=== PATIENT | female | born 1975 | race Caucasian/White ===

== ENCOUNTER 2017-07-01 21:12 | Emergency (ER) | payer SELFPAY ==
[2017-07-01 21:41] VITALS: BP 108/57; PULSE 73; TEMP 98.1; BMI 33.3
--- NOTE | 2017-07-01 22:49 | PDOC ---
History of Present Illness - General Chief Complaint: Sore Throat Stated Complaint: PAIN, ACUTE Time Seen by Provider: 07/01/17 22:37 History Source: Patient Exam Limitations: No Limitations - History of Present Illness Initial Comments: 07/01/17 22:45 CC sore throat with nasal congestion and x 3 days Past History - Past Medical History Allergies/Adverse Reactions: Allergies Allergy/AdvReac Type Severity Reaction Status Date / Time MORPHINE Allergy Uncoded 07/01/17 21:31 Home Medications: Ambulatory Orders Diphenhydramine HCl [Benadryl -] 25 mg PO Q6H 07/01/17 - Psycho/Social/Smoking Cessation Hx Smoking History: Never smoked Hx Alcohol Use: No Drug/Substance Use Hx: No Review of Systems - Review of Systems Constitutional: No: Chills, Fever, Malaise HEENTM: Yes: Nose Pain, Nose Congestion, Throat Pain. No: Nose Bleeding, Throat Swelling, Difficulty Swallowing Respiratory: Yes: Cough Cardiac (ROS): No: Symptoms Reported ABD/GI: No: Symptoms Reported, Diarrhea, Nausea, Vomiting *Physical Exam - Vital Signs Last Vital Signs Temp Pulse Resp BP Pulse Ox 98.1 F 73 16 108/57 99 07/01/17 21:32 07/01/17 21:32 07/01/17 21:32 07/01/17 21:32 07/01/17 21:32 - Physical Exam General Appearance: Yes: Appropriately Dressed. No: Apparent Distress HEENT: positive: TMs Normal, Nasal Congestion, Rhinorrhea. negative: Normal Voice, Pharyngeal Erythema, Tonsillar Exudate Neck: positive: Supple. negative: Tender, Rigid, Lymphadenopathy (R), Lymphadenopathy (L) Respiratory/Chest: negative: Lungs Clear, Normal Breath Sounds, Wheezing Medical Decision Making - Medical Decision Making 07/01/17 22:47 will treat for allergies and throat pain *DC/Admit/Observation/Transfer Diagnosis at time of Disposition: Viral pharyngitis - Discharge Dispostion Disposition: HOME Condition at time of disposition: Stable Admit: No - Patient Instructions Additional Instructions: gargle; advil for fever; throat lozenges
== END 2017-07-01 22:55 | disposition home or self-care (01) ==
LOC: JERFT 21:12 → JER 21:12 → JERFT 22:55
DX: J02.8 Acute pharyngitis due to other specified organisms (principal); B97.89 Other viral agents as the cause of diseases classified elsewhere
CPT/HCPCS: 99281-25

== ENCOUNTER 2017-10-03 16:31 | Emergency (ER) | payer OTHER ==
[2017-10-03 16:47] VITALS: BP 107/66; PULSE 90; TEMP 98; BMI 32.0
--- NOTE | 2017-10-03 16:47 | PDOC ---
Rapid Medical Evaluation Time Seen by Provider: 10/03/17 16:44 Medical Evaluation: Allergies Allergy/AdvReac Type Severity Reaction Status Date / Time MORPHINE Allergy Uncoded 07/01/17 21:31 10/03/17 16:44 I have performed a brief in person evaluation of this patient. The patient presents with chief complaint of : sore throat for one week with cough , history of asthma . Pertinent PE findings: coughing hoarse voice , lungs CTA no wheezing I have ordered the following: rapid strep The patient will proceed to the ER for further evaluation.
[2017-10-03] MEDS ORDERED: ALBUTEROL SO4 2.5/IPRATROPIUM 0.5 INH SOL 3 ML VIAL.NEB. NEB ONE (17:45)
[2017-10-03] MEDS ORDERED: predniSONE 20 MG TABLET (UD) PO ONE (17:45)
--- NOTE | 2017-10-03 17:45 | PDOC ---
History of Present Illness - General Chief Complaint: Sore Throat Stated Complaint: COUGHING Time Seen by Provider: 10/03/17 16:44 History Source: Patient Exam Limitations: No Limitations - History of Present Illness Initial Comments: 10/03/17 17:46 Patient is here with complaints of one week of moist productive cough of thick yellow phlegm. States has asthma and has been using her albuterol inhaler but has minimal resolved and in fact getting worse past couple days. 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 Has used [id number] medications with some resolve Timing/Duration: reports: getting worse Severity: reports: mild, moderate Associated Symptoms: reports: cough, fever/chills, nasal congestion, nasal drainage, shortness of breath Past History - Travel Traveled outside of the country in the last 30 days: No Close contact w/someone who was outside of country & ill: No - Past Medical History Allergies/Adverse Reactions: Allergies Allergy/AdvReac Type Severity Reaction Status Date / Time morphine Allergy Verified 10/03/17 17:47 MORPHINE Allergy Uncoded 10/03/17 16:48 Home Medications: Ambulatory Orders Albuterol 0.083% Nebulizer Micaela [Ventolin 0.083% Nebulizer Soln -] 1 neb NEB Q4H PRN #30 vial 10/03/17 Prednisone [Deltasone -] 20 mg PO BID #8 tablet 10/03/17 COPD: No Other medical history: SLEEP APNEA, VARICOSE VEINS - Suicide/Smoking/Psychosocial Hx Smoking History: Never smoked Hx Alcohol Use: No Drug/Substance Use Hx: No Review of Systems - Review of Systems Able to Perform ROS?: Yes Is the patient limited [place]an proficient: Yes Constitutional: Yes: Symptoms Reported, See HPI, Fever, Loss of Appetite, Malaise HEENTM: Yes: Symptoms Reported, See HPI, Nose Congestion, Throat Swelling, Mouth Pain, Difficulty Swallowing Respiratory: Yes: Symptoms reported, See HPI, Cough Musculoskeletal: Yes: See HPI. No: Symptoms Reported Integumentary: Yes: Symptoms Reported All Other Systems: Reviewed and Negative *Physical Exam - Vital Signs Last Vital Signs Temp Pulse Resp BP Pulse Ox 98.0 F 90 20 107/66 100 10/03/17 16:43 10/03/17 16:43 10/03/17 16:43 10/03/17 16:43 10/03/17 16:43 - Physical Exam General Appearance: Yes: Nourished, Appropriately Dressed HEENT: positive: TMs Normal, Pharynx Normal (with thick white posterior sinus drainage noted in posterior pharynx) Neck: positive: Supple, Lymphadenopathy (R), Lymphadenopathy (L) Respiratory/Chest: positive: Chest Tender, Wheezing (tight inspiratory and expiratory breath sounds bilaterally). negative: Lungs Clear, Normal Breath Sounds Cardiovascular: positive: Regular Rhythm Gastrointestinal/Abdominal: positive: Soft. negative: Tender Musculoskeletal: positive: Normal Inspection Extremity: positive: Normal Capillary Refill, Normal Inspection. 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 Patient states feels much better and able to clear secretions with good inspiratory effort. *DC/Admit/Observation/Transfer Diagnosis at time of Disposition: Upper respiratory infection, viral - Discharge Dispostion Disposition: HOME Condition at time of disposition: Stable Admit: No - Referrals - Patient Instructions Printed Discharge Instructions: DI for Viral Upper Respiratory Infection -- Adult Additional Instructions: Rest, drink lots of fluids: Teas, water, soups, Pedialyte Saltwater gargles Steamy showers/seem to face break up mucus Avoid contact with others until fevers and cough resolved Lots of handwashing and good hygiene Continue [id number] medications for symptomatic relief Tylenol or Motrin for fever and pain Continue albuterol nebulizers every 4-6 hours for the next 2 days then as needed for continued cough Prednisone as directed until completed Followup with private physician in one to 2 days Return to emergency department / pediatric hospital for worsened symptoms, fevers, dehydration - Post Discharge Activity Forms/Work/School Notes: Back to Work
== END 2017-10-03 19:16 | disposition home or self-care (01) ==
LOC: JERFT 16:31
PROC: 3E0F7GC Introduction of Other Therapeutic Substance into Respiratory Tract, Via Natural or Artificial Opening (ICD-10-PCS; principal; 2017-10-03)
DX: J06.9 Acute upper respiratory infection, unspecified (principal); J45.909 Unspecified asthma, uncomplicated
CPT/HCPCS: 87070; 87430; 99281-25

== ENCOUNTER 2017-11-17 20:06 | Emergency (ER) | payer OTHER ==
[2017-11-17 20:21] VITALS: BP 106/67; PULSE 70; TEMP 97.7; BMI 33.0
--- NOTE | 2017-11-17 21:07 | PDOC ---
History of Present Illness - General Chief Complaint: Cold Symptoms Stated Complaint: COUGH, DIFFICULTY BREATHING Time Seen by Provider: 11/17/17 20:39 - History of Present Illness Initial Comments: 11/17/17 21:02 CHIEF COMPLAINT: HISTORY OF PRESENT ILLNESS: 42 yo F with hx of asthma presents to [facility] with cough x 2 weeks, body aches, and fever that has now resolved. No recent travel or sick contacts. PAST MEDICAL HISTORY: Denies past medical history FAMILY HISTORY: Denies SOCIAL HISTORY:Denies tobacco, alcohol, illicit drug use. SURGICAL HISTORY: Denies ALLERGIES: morphine REVIEW OF SYSTEMS General/Constitutional: Denies fever or chills. Denies weakness, weight change. HEENT: Denies change in vision. Denies ear pain or discharge. Denies sore throat. Cardiovascular: Denies chest pain or shortness of breath. Respiratory: Cough x 2 weeks. Denies wheezing, or hemoptysis. Gastrointestinal: Denies nausea, vomiting, diarrhea or constipation. Denies rectal bleeding. Genitourinary: Denies dysuria, frequency, or change in urination. Musculoskeletal: Denies joint or muscle swelling or pain. Denies neck or back pain. Skin and breasts: Denies rash or easy bruising. Neurologic: Denies headache, vertigo, loss of consciousness, or loss of sensation. PHYSICAL EXAM General Appearance: Well-appearing, appropriately dressed. No apparent distress , no intoxication. HEENT: EOMI, PERRLA, normal ENT inspection, normal voice, TMs normal, pharynx normal. No conjunctival pallor. No photophobia, scleral icterus. Neck: Supple. Trachea midline. No tenderness, rigidity, carotid bruit, stridor , lymphadenopathy, or thyromegaly. Respiratory/Chest: Lungs CTAB. No shortness of breath, chest tenderness, respiratory distress, accessory muscle use. No crackles, rales, rhonchi, stridor , wheezing, dullness Cardiovascular: RRR. S1, S2. No JVD, murmur, bradycardia, tachycardia. Vascular Pulses: Dorsalis-Pedis (R): 2+, Dorsalis-Pedis (L): 2+ Gastrointestinal/Abdominal: Normal bowel sounds. Abdomen soft, non-distended. No tenderness or rebound tenderness. No organomegaly, pulsatile mass, guarding , hernia, hepatomegaly, splenomegaly. Lymphatic: No adenopathy, tenderness. Musculoskeletal/Extremities: Normal inspection. FROM of all extremities, normal capillary refill. Pelvis Stable. No CVA tenderness. No tenderness to extremities, pedal edema, swelling, erythema or deformity. Integumentary: Appropriate color, dry, warm. 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 Fully oriented, alert. Appropriate mood/affect. Motor strength 5/5. No appreciable EOM palsy, facial droop or sensory deficit. Past History - Past Medical History Allergies/Adverse Reactions: Allergies Allergy/AdvReac Type Severity Reaction Status Date / Time morphine Allergy Verified 10/03/17 17:47 MORPHINE Allergy Uncoded 10/03/17 16:48 Home Medications: Ambulatory Orders Albuterol Sulfate Inhaler - [Ventolin HFA Inhaler -] 1 - 2 inh PO Q4H PRN #1 inhaler 11/17/17 Azithromycin [Zithromax 250mg Tablets -] 250 mg PO UTDICT #6 tab 11/17/17 Benzonatate [Tessalon Pearls -] 100 mg PO TID PRN #21 capsule 11/17/17 COPD: No - Suicide/Smoking/Psychosocial Hx Smoking History: Never smoked Hx Alcohol Use: No Drug/Substance Use Hx: No *Physical Exam - Vital Signs Last Vital Signs Temp Pulse Resp BP Pulse Ox 97.7 F 70 20 106/67 99 11/17/17 20:20 11/17/17 20:20 11/17/17 20:20 11/17/17 20:20 11/17/17 20:20 *DC/Admit/Observation/Transfer Diagnosis at time of Disposition: Cough - Discharge Dispostion Disposition: HOME Condition at time of disposition: Stable Admit: No - Prescriptions Prescriptions: Albuterol Sulfate Inhaler - [Ventolin HFA Inhaler -] 1 - 2 inh PO Q4H PRN #1 inhaler PRN Reason: Short Of Breath/Wheezing Azithromycin [Zithromax 250mg Tablets -] 250 mg PO UTDICT #6 tab Benzonatate [Tessalon Pearls -] 100 mg PO TID PRN #21 capsule PRN Reason: Cough - Referrals - Patient Instructions Printed Discharge Instructions: DI for Acute Bronchitis Additional Instructions: Please take medications as prescribed. Follow up with your primary care doctor by the end of this week. If your fever returns, or you develop neck stiffness, persistent vomiting or diarrhea, or any new or worsening symptoms, please return to the ER. - Post Discharge Activity
== END 2017-11-17 21:20 | disposition home or self-care (01) ==
LOC: JERFT 20:06
DX: J20.9 Acute bronchitis, unspecified (principal); J45.909 Unspecified asthma, uncomplicated
CPT/HCPCS: 87804; 99281-25

== ENCOUNTER 2018-02-05 23:09 | Emergency (ER) | payer OTHER ==
[2018-02-05 23:29] VITALS: BP 100/75; PULSE 65; TEMP 97.7; BMI 33.6
--- NOTE | 2018-02-06 01:26 | PDOC ---
History of Present Illness - General Chief Complaint: Pain, Acute Stated Complaint: ABDOMINAL PAIN, BLEEDING IN URINE Time Seen by Provider: 02/06/18 01:11 History Source: Patient Exam Limitations: No Limitations - History of Present Illness Initial Comments: CHIEF COMPLAINT: 42 y/o afebrile female c/o lower abdominal discomfort and hematuria today. HISTORY OF PRESENT ILLNESS: The patient had an endoscopy with a polyp removed yesterday. She denies f/c, n/v/d, CP, SOB, back pain, melena, BRPBR. Vital signs on arrival are within normal limits. REVIEW OF SYSTEMS: GENERAL/CONSTITUTIONAL: No fever/chills. No weakness. No weight change. HEAD, EYES, EARS, NOSE AND THROAT: No change in vision. No ear pain or discharge. No sore throat. CARDIOVASCULAR: No chest pain or shortness of breath. RESPIRATORY: No cough, wheezing, or hemoptysis. GASTROINTESTINAL: +lower abdominal discomfort. No nausea, vomiting, diarrhea, constipation, melena, BRBPR GENITOURINARY: +hematuria. No frequency or dysuria. MUSCULOSKELETAL: No joint or muscle swelling or pain. No neck or back pain. SKIN: No rash or easy bruising. NEUROLOGIC: No headache, vertigo, loss of consciousness, or loss of sensation. PHYSICAL EXAM: GENERAL: The patient is awake, alert, and fully oriented, in no acute distress. She is well appearing and ambulatory. HEAD: Normal with no signs of trauma. ENT: Pupils equal, round and reactive to light, extraocular movements intact, sclera anicteric, conjunctiva clear. Neck supple. LUNGS: Clear to auscultation bilaterally. Normal excursion. No respiratory distress or use of accessory muscles. CV: RRR, S1/S2, no MRG. Cap refill < 2 sec. ABDOMEN: TTP of suprapubic region. Soft, non-distended, no hepatomegaly or splenomegaly, no masses. EXTREMITIES: Normal range of motion, no edema. NEUROLOGICAL: Normal speech, normal gait. CN II-XII grossly intact. SKIN: Warm, dry, normal turgor, no rashes or lesions noted. Past History - Past Medical History Allergies/Adverse Reactions: Allergies Allergy/AdvReac Type Severity Reaction Status Date / Time morphine Allergy Verified 02/05/18 23:27 MORPHINE Allergy Uncoded 02/05/18 23:27 Home Medications: Ambulatory Orders Albuterol Sulfate Inhaler - [Ventolin HFA Inhaler -] 1 - 2 inh PO Q4H PRN #1 inhaler 11/17/17 COPD: No - Suicide/Smoking/Psychosocial Hx Smoking History: Never smoked Have you smoked in the past 12 months: No Information on smoking cessation initiated: No Hx Alcohol Use: No Drug/Substance Use Hx: No *Physical Exam - Vital Signs Last Vital Signs Temp Pulse Resp BP Pulse Ox 97.7 F 65 20 100/75 99 02/05/18 23:27 02/05/18 23:27 02/05/18 23:27 02/05/18 23:27 02/05/18 23:27 Medical Decision Making - Medical Decision Making A/P: 42 y/o female with symptoms of a UTI. Plan is as follows: 1. UA/culture/hcg UA negative for infection. 2+blood Instructed the patient to f/u with Dr. Harrison and her primary care physician tomorrow. Suggested she drink lots of water and return to the ER with any worsening or concerning symptoms The patient verbalizes understanding of all instructions, has no further questions and is awaiting discharge. *DC/Admit/Observation/Transfer Diagnosis at time of Disposition: Hematuria Qualifiers: Hematuria type: unspecified type Qualified Code(s): R31.9 - Hematuria, unspecified - Discharge Dispostion Disposition: HOME Condition at time of disposition: Good - Referrals - Patient Instructions Printed Discharge Instructions: DI for Hematuria Additional Instructions: Discharge Instructions: -There is blood in your urine -You do not have a urinary tract infection -Please follow up with Dr. Harrison and your primary doctor tomorrow -Return to the ER with any worsening or concerning symptoms Print Language: AZERBAIJANI - Post Discharge Activity
[2018-02-06 01:46] LABS: URINE APPEARANCE CLEAR; URINE BILIRUBIN NEGATIVE (<2.0 mg/dL); URINE BLOOD 2+ (NEGATIVE); URINE COLOR LTYELLOW; URINE GLUCOSE (UA) NEGATIVE (NEGATIVE); URINE KETONE NEGATIVE (NEGATIVE); URINE LEUK ESTERASE NEGATIVE (NEGATIVE); URINE NITRITE NEGATIVE (NEGATIVE); URINE PROTEIN NEGATIVE (NEGATIVE); URINE UROBILINOGEN NEGATIVE mg/dL (0.2-1.0)
[2018-02-06 02:00] LABS: EPI CELLS RARE /HPF (FEW)
[2018-02-06 02:20] LABS: HCG,QUALITATIVE URINE NEGATIVE
== END 2018-02-06 02:46 | disposition home or self-care (01) ==
LOC: JER 23:09
DX: R31.9 Hematuria, unspecified (principal)
CPT/HCPCS: 81003; 81015; 84703; 87086; 99281-25; 99283-25

== ENCOUNTER 2018-02-25 09:49 | Emergency (ER) | payer OTHER ==
[2018-02-25 10:17] VITALS: TEMP 98; BMI 33.8
[2018-02-25] MEDS ORDERED: SODIUM CHLORIDE 0.9% 1000 ML INFUS.BAG IV ONE (10:20)
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
[2018-02-25] MEDS ORDERED: ACETAMINOPHEN 1000 MG/100 ML VIAL (NON FORMULARY) IVPB ONE (10:22)
[2018-02-25] MEDS ORDERED: diazePAM 5 MG TABLET PO ONE (10:23)
[2018-02-25] MEDS ORDERED: diazePAM 5 MG TABLET ONE (10:29)
[2018-02-25] MEDS ORDERED: ACETAMINOPHEN INJECTION 100 ML IVPB ONE (10:30)
[2018-02-25] MEDS ORDERED: KETOROLAC TROMETHAMINE 30 MG/1 ML VIAL IVPUSH ONE (13:09)
[2018-02-25] MEDS ORDERED: KETOROLAC TROMETHAMINE 30 MG/1 ML VIAL ONE (13:31)
[2018-02-25 13:55] VITALS: BP 119/81; PULSE 78
== END 2018-02-25 14:00 | disposition home or self-care (01) ==
LOC: JER 09:49
PROC: 3E033NZ Introduction of Analgesics, Hypnotics, Sedatives into Peripheral Vein, Percutaneous Approach (ICD-10-PCS; principal; 2018-02-25)
PROC: 3E0333Z Introduction of Anti-inflammatory into Peripheral Vein, Percutaneous Approach (ICD-10-PCS; 2018-02-25)
DX: R51 Headache (principal); R42 Dizziness and giddiness; M54.2 Cervicalgia; M25.551 Pain in right hip; M25.552 Pain in left hip; V73.6XXA Passenger on bus injured in collision with car, pick-up truck or van in traffic accident, initial encounter; Y92.414 Local residential or business street as the place of occurrence of the external cause; Y93.89 Activity, other specified; Y99.0 Civilian activity done for income or pay
CPT/HCPCS: 36415; 70450-TC; 72100-TC-FY; 72125-TC; 72170-TC-FY; 84703; 99282-25; J0131; J7030